=== PATIENT | male | born 1960 | race Caucasian/White ===

== ENCOUNTER 2016-12-01 08:58 | Emergency (ER) | payer OTHER ==
[2016-12-01 09:38] LABS: ABSOLUTE NEUTROPHIL COUNT 5.9 K/mm3 (1.8-7.7); BASO % 0.3 % (0.2-1.0); EOS % 0.2 % (0.9-2.9); HEMATOCRIT 41.1 % (32.0-52.0); HEMOGLOBIN 13.7 gm/l (14.0-18.0); IMM NEUT% 0.3 % (0-1); LYMPH # 0.5 (1.0-4.8); LYMPH % 7.2 % (15-45); MEAN CELL VOLUME 89.2 fl (80.0-94.0); MEAN CORPUSCULAR HEMOGLOBIN 29.7 pg (27.0-31.0); MEAN CORPUSCULAR HGB CONC 33.3 g/dl (33.0-37.0); MEAN PLATELET VOLUME 10.7 fl (7.4-10.4); MONO # 0.3 (0.0-0.8); MONO % 3.8 % (4-12); NEUT % 88.2 % (43-75); PLATELET COUNT 209 K/mm3 (130-400); RED CELL DISTRIBUTION WIDTH 12.4 % (11.5-14.5)
[2016-12-01 09:51] LABS: ALB/GLOB RATIO 1.6 (>1.0); ALBUMIN 4.1 gm/dL (3.5-5.7); CALCIUM 9.1 mg/dL (8.6-10.3)
--- NOTE | 2016-12-01 10:02 | RAD ---
CHEST - 2 VIEWS COMPARISON: Chest 2 views, 11/03/2005 HISTORY: Chest pain after fasting. FINDINGS: Views: Frontal and lateral chest Lungs: Normal Heart and vessels: Normal Trachea and bronchi: Normal Mediastinum and andria: Normal Costophrenic sulci: Normal Chest wall and bones: Normal. Upper abdomen: Normal. IMPRESSION: Negative 2 view chest.
== END 2016-12-01 13:16 | disposition home or self-care (01) ==
LOC: ED 08:58
DX: R42 Dizziness and giddiness (principal); R07.9 Chest pain, unspecified; E66.9 Obesity, unspecified